=== PATIENT | male | born 1995 | race American Indian/Alaskan Native ===

== ENCOUNTER 2022-02-26 15:13 | Emergency (ER) | payer SELFPAY ==
[2022-02-26] MEDS ORDERED: MORPHINE 4 MG/1 ML INJ IV ONE (15:48)
[2022-02-26] MEDS ORDERED: ONDANSETRON 4 MG/2 ML INJ IV ONE (15:48)
[2022-02-26] MEDS ORDERED: LACTATED RINGERS 1000 ML IV SOLN IV ONE (15:48)
[2022-02-26] MEDS ORDERED: ACETAMINOPHEN 325 MG TAB PO ONE (15:52)
--- NOTE | 2022-02-26 15:53 | Emergency Department Report ---
ED General Adult HPI - General Chief complaint: Nausea/Vomiting/Diarrhea Stated complaint: GENERAL BODY WEAKNESS PUI?: Yes Time Seen by Provider: 02/26/22 15:33 Source: patient, EMS ( EMS documentation not available at time of chart dictation ), RN notes reviewed Mode of arrival: Stretcher Limitations: No Limitations - History of Present Illness Initial comments: The patient was evaluated in the emergency department for symptoms described in the history of present illness. He/she was evaluated in the context of the global COVID-19 pandemic, which necessitated consideration that the patient might be at risk for infection with the virus that causes COVID-19. Institutional protocols and algorithms that pertain to the evaluation of patients at risk for COVID-19 are in a state of rapid change based on information released by regulatory bodies including the CDC and federal and state organizations. These policies and algorithms were followed during the patient's care in the emergency department. Please note that these policies, procedures and recommendations changed on a rapid basis. During the entire history and physical examination, I had on complete personal protective equipment. This is a 27-year-old gentleman, who is not vaccinated against COVID-19, who is currently visiting from [place], who has a history of being HIV positive, reports undetectable viral load, but does not report that he knows his CD4 count, and also reports that he is currently on antiviral therapy. He presents to the department today with complaints of decreased appetite, nausea and vomiting x4, and a sensation like his body is locking up. No headache, neck pain, chest pain, urinary symptoms or testicular pain. No loss of taste or smell. He does occasionally consume marijuana. Reports that he was admitted to the hospital earlier on this year in [facility], for possible Shigella infection. However this was in August or September of this year. Does not believe that he is consumed antibiotics recently. Reports that he recently drove up here from [place]. He is not having physical pain at this time The patient is also concerned that he may have gotten too hot, because there is no air conditioning in the place where he is staying at this time. -: Sudden, hour(s) Consistency: constant Improves with: none Worsens with: other (Palpation of the abdomen) - Related Data Previous Rx's Medication Instructions Recorded Last Taken Type Acetaminophen [Non-Aspirin Extra 500 mg PO Q6HR PRN #30 tablet 02/26/22 Unknown Rx Strength] Ibuprofen [Motrin] 400 mg PO Q8H PRN #30 tablet 02/26/22 Unknown Rx Ondansetron [Zofran Odt] 4 mg PO Q8HR PRN #20 tab.rapdis 02/26/22 Unknown Rx Allergies Allergy/AdvReac Type Severity Reaction Status Date / Time Sulfa (Sulfonamide Allergy Hives Verified 02/26/22 15:27 Antibiotics) ED Review of Systems ROS: Stated complaint: GENERAL BODY WEAKNESS Other details as noted in HPI Constitutional: fever, weakness. denies: malaise Eyes: denies: eye discharge ENT: denies: epistaxis Respiratory: denies: cough Cardiovascular: denies: chest pain Gastrointestinal: nausea, vomiting. denies: diarrhea Genitourinary: denies: dysuria, testicular pain Musculoskeletal: denies: back pain, arthralgia, myalgia Neurological: weakness ED Past Medical Hx - Past Medical History Hx HIV: Yes Additional medical history: cancerous cyst on neck - Medications Home Medications: Home Medications Medication Instructions Recorded Confirmed Last Taken Type Acetaminophen [Non-Aspirin Extra 500 mg PO Q6HR PRN #30 tablet 02/26/22 Unknown Rx Strength] Ibuprofen [Motrin] 400 mg PO Q8H PRN #30 tablet 02/26/22 Unknown Rx Ondansetron [Zofran Odt] 4 mg PO Q8HR PRN #20 tab.rapdis 02/26/22 Unknown Rx ED Physical Exam - General Limitations: No Limitations General appearance: alert, anxious - Head Head exam: Present: atraumatic, normocephalic - Eye Eye exam: Present: normal appearance. Absent: EOMI, nystagmus - ENT ENT exam: Present: normal exam, normal orophraynx, mucous membranes moist, normal external ear exam - Neck Neck exam: Present: normal inspection, full ROM. Absent: tenderness, meningismus - Respiratory Respiratory exam: Present: other (Pulmonary auscultation not performed secondary to lack of disposable stethoscope). 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 Absent: distended, pulsatile mass - Rectal Rectal exam: Present: deferred - Extremities Exam Extremities exam: Present: normal inspection, full ROM, other (2+ pulses noted in the bilateral upper and lower extremities. There is no palpable cord. negative Homans sign. Muscular compartments are soft. The pelvis is stable.). Absent: pedal edema, calf tenderness - Back Exam Back exam: Present: normal inspection. Absent: tenderness, CVA tenderness (R), CVA tenderness (L), paraspinal tenderness, vertebral tenderness - Neurological Exam Neurological exam: Present: alert, oriented X3, other (No facial droop. Tongue midline. Extraocular movements intact bilaterally. Facial sensation intact to light touch in V1, V2, V3 distribution bilaterally. 5 and a 5 strength in 4 extremities. Sensation intact to light touch in 4 extremities.). Absent: motor sensory deficit - Psychiatric Psychiatric exam: Present: anxious - Skin Skin exam: Present: warm, dry, intact, normal color. Absent: rash ED Course Vital Signs 02/26/22 02/26/22 02/26/22 15:23 16:55 17:53 Temperature 101.7 F H Pulse Rate 95 H 115 H Respiratory 18 16 Rate Blood Pressure 118/68 103/50 [Left] O2 Sat by Pulse 98 95 96 Oximetry - Reevaluation(s) Reevaluation #1: 02/26/22 16:06 Differential diagnosis, include but not limited to: COVID-19, pneumonia, colitis, diverticulitis, enteritis, renal colic, urinary tract infection, pneumonia Assessment and plan: 27-year-old gentleman who is febrile and tachycardic, with unopposed nausea and vomiting, and abdominal tenderness. Place patient on isolation. Obtain x-ray of the chest, CT scan of the abdomen pelvis, and appropriate laboratory studies. Treat patient's symptoms. He is not acutely hypoxic at this time. Reassess after initial data points. I discussed the plan of care with the patient. He articulated understanding. He is agreeable to the plan of care. This may be an atypical presentation of COVID However, he is not hypoxic, therefore, from a COVID perspective, assuming laboratory studies do not demonstrate significant derangement, would not require admission or hospitalization 02/26/22 16:07 02/26/22 17:12 Patient gives me a thumbs up. He is in no acute distress. Laboratory studies reviewed and appreciated. Awaiting urinalysis, CT scan abdomen pelvis. No active vomiting. 02/26/22 17:[address] scan abdomen pelvis. We discussed rationale for acquisition of CT scan abdomen pelvis. Patient is agreeable at this time. He does request to finish his current phone conversation, prior to CT scan abdomen pelvis. This is resulting in a delay to disposition. I also discussed laboratory studies with patient 02/26/22 19:04 CT scan abdomen pelvis negative for acute findings. Patient feels much improved. No active vomiting. Blood pressure acceptable at this time. He is somewhat tachycardic at this time, although he endorses that he is somewhat anxious. I discussed all findings with patient. He articulates understanding We also explicitly discussed how this patient may require outpatient insurance, such as by going to [email or web address], and obtaining insurance through the affordable care act. All questions are answered. Return precautions are reviewed 02/26/22 19:04 02/26/22 19:30 Heart rate approximately 110 bpm. ED Medical Decision Making - Lab Data Result diagrams: 02/26/22 16:04 02/26/22 16:04 Vital Signs 02/26/22 15:23 Temperature 101.7 F H Pulse Rate 95 H Respiratory 18 Rate Blood Pressure 118/68 [Left] O2 Sat by Pulse 98 Oximetry Lab Results 02/26/22 02/26/22 02/26/22 Range/Units 16:04 16:04 16:04 WBC 9.1 (4.5-11.0) K/mm3 RBC 4.50 (3.65-5.03) M/mm3 Hgb 14.8 (11.8-15.2) gm/dl Hct 43.4 (35.5-45.6) % MCV 97 H (84-94) fl MCH 33 H (28-32) pg MCHC 34 (32-34) % RDW 13.3 (13.2-15.2) % Plt Count 150 (140-440) K/mm3 Seg Neutrophils % Python Java Developer APTT 28.6 (24.2-36.6) Sec. Sodium 139 (137-145) mmol/L Potassium 3.5 L (3.6-5.0) mmol/L Chloride 102.1 (98-107) mmol/L Carbon Dioxide 24 (22-30) mmol/L Anion Gap 16 mmol/L BUN 10 (9-20) mg/dL Creatinine 1.0 (0.8-1.3) mg/dL Estimated GFR > 60 ml/min BUN/Creatinine Ratio 10 % Glucose 98 (75-100) mg/dL Lactic Acid (0.7-2.0) mmol/L Calcium 9.9 (8.4-10.2) mg/dL Magnesium (1.7-2.3) mg/dL Total Bilirubin 1.50 H (0.1-1.2) mg/dL AST 14 (5-40) units/L ALT 9 (7-56) units/L Alkaline Phosphatase 63 (35-129) units/L Lactate Dehydrogenase 190 H (91-180) units/L Total Creatine Kinase (55-170) units/L Total Protein 7.7 (6.3-8.2) g/dL Albumin 4.5 (3.9-5) g/dL Albumin/Globulin Ratio 1.4 % Lipase 14 (13-60) units/L 02/26/22 02/26/22 Range/Units 16:04 16:04 WBC (4.5-11.0) K/mm3 RBC (3.65-5.03) M/mm3 Hgb (11.8-15.2) gm/dl Hct (35.5-45.6) % MCV (84-94) fl MCH (28-32) pg MCHC (32-34) % RDW (13.2-15.2) % Plt Count (140-440) K/mm3 Seg Neutrophils % APTT (24.2-36.6) Sec. Sodium (137-145) mmol/L Potassium (3.6-5.0) mmol/L Chloride (98-107) mmol/L Carbon Dioxide (22-30) mmol/L Anion Gap mmol/L BUN (9-20) mg/dL Creatinine (0.8-1.3) mg/dL Estimated GFR ml/min BUN/Creatinine Ratio % Glucose (75-100) mg/dL Lactic Acid 1.50 (0.7-2.0) mmol/L Calcium (8.4-10.2) mg/dL Magnesium 1.20 L (1.7-2.3) mg/dL Total Bilirubin (0.1-1.2) mg/dL AST (5-40) units/L ALT (7-56) units/L Alkaline Phosphatase (35-129) units/L Lactate Dehydrogenase (91-180) units/L Total Creatine Kinase 81 (55-170) units/L Total Protein (6.3-8.2) g/dL Albumin (3.9-5) g/dL Albumin/Globulin Ratio % Lipase (13-60) units/L - Radiology Data Radiology results: pending, report reviewed, image reviewed CHEST 1 VIEW INDICATION / CLINICAL INFORMATION: Nausea vomiting and fever. FINDINGS: SUPPORT DEVICES: None. HEART / MEDIASTINUM: No significant abnormality. LUNGS / PLEURA: No significant pulmonary or pleural abnormality. No pneumothorax. ADDITIONAL FINDINGS: No significant additional findings. IMPRESSION: 1. No acute findings. Signer Name: Wale Curry MD Signed: 02/26/2022 3:06 PM Workstation Name: [id number] CT ABDOMEN AND PELVIS WITH IV CONTRAST INDICATION: Acute abdominal tenderness with nausea and vomitin. COMPARISON: None available. TECHNIQUE: Axial CT images were obtained through the abdomen and pelvis after 100 mL Omnipaque [address] scans at this location are performed using CT dose reduction for ALARA by means of automated exposure control. FINDINGS -- ABDOMEN: Lung Bases: No acute abnormality. Liver: Normal. Gallbladder: Normal. Bile Ducts: Normal. Pancreas: Normal. Spleen: Normal. Adrenals: Normal. Right Kidney and Proximal Ureter: Normal. Left Kidney and Proximal Ureter: Normal. Stomach and Bowel: Normal. Lymph Nodes: No significant adenopathy. Aorta: No significant abnormality. IVC: Normal. Additional Findings: None. FINDINGS -- PELVIS: Urinary Bladder and Distal Ureters: Normal. Reproductive Organs: No acute abnormality. Appendix: Normal. Bowel: No acute abnormality. Free Fluid: None. Lymph Nodes: No significant adenopathy. Additional Findings: None. Skeletal System: No acute abnormality. IMPRESSION: 1. No acute process in the abdomen or pelvis. Signer Name: Wale Curry MD Signed: 02/26/2022 5:39 PM Workstation Name: [email or web address] Critical care attestation.: If time is entered above; I have spent that time in minutes in the direct care of this critically ill patient, excluding procedure time. ED Disposition Clinical Impression: Acute abdominal pain, COVID-19 vaccination not done, Hypomagnesemia, Acute febrile illness Disposition: 01 HOME / SELF CARE / HOMELESS Is pt being admited?: No Does the pt Need Aspirin: No Condition: Good Additional Instructions: Recommend the patient complete outpatient COVID-19 vaccination series, when he is fever free, and symptom-free. Please continue current outpatient medications. Avoid consumption of alcohol, tobacco, smoke products, including cannabis and marijuana. Please take a multivitamin [id number] on a daily basis, and patient may consume foods that have elevated magnesium level, such as banana, avocado, and potato. Cultures are sent today, and results will be available in the next 3 to 5 days. Please have your primary care doctor contact the medical records department to obtain culture results. Patient may take the prescribed pain medications and nausea medications as needed and directed. Recommend self-isolation, and outpatient COVID-19 testing. Recommend follow-up with a primary care doctor within the next 3 to 5 days. Do not take metformin medication for the next 2 days, if patient takes this medication. Please return to the emergency room right away with new pain, worsened pain, migration of pain, projectile vomiting, change in mental status, confusion, inability tolerate liquid feeds, new, worsened or different symptoms not present on the initial emergency room evaluation Prescriptions: Ibuprofen [Motrin] 400 mg PO Q8H PRN #30 tablet PRN Reason: Pain Acetaminophen [Non-Aspirin Extra Strength] 500 mg PO Q6HR PRN #30 tablet PRN Reason: Pain , Severe (7-10) Ondansetron [Zofran Odt] 4 mg PO Q8HR PRN #20 tab.rapdis PRN Reason: Nausea Referrals: [facility] [Provider Group] - 3-5 Days [facility] [Provider Group] - 3-5 Days [facility] [Outside] - 3-5 Days Forms: Work/School Release Form(ED)
--- NOTE | 2022-02-26 16:10 | XRay Report ---
CHEST 1 VIEW INDICATION / CLINICAL INFORMATION: Nausea vomiting and fever. FINDINGS: SUPPORT DEVICES: None. HEART / MEDIASTINUM: No significant abnormality. LUNGS / PLEURA: No significant pulmonary or pleural abnormality. No pneumothorax. ADDITIONAL FINDINGS: No significant additional findings. IMPRESSION: 1. No acute findings. Signer Name: Wale Curry MD Signed: 02/26/2022 4:06 PM Workstation Name: [id number]
[2022-02-26 16:32] LABS: Hematocrit 43.4 % (35.5-45.6); Hemoglobin 14.8 gm/dl (11.8-15.2); Mean Corpuscular HGB Conc 34 % (32-34); Mean Corpuscular Volume 97 fl (84-94); Platelet Count 150 K/mm3 (140-440); Red Cell Distribution Width 13.3 % (13.2-15.2)
[2022-02-26 16:45] LABS: Alanine Aminotransferase 9 units/L (7-56); Albumin 4.5 g/dL (3.9-5); BUN/Creatinine Ratio 10; Blood Urea Nitrogen 10 mg/dL (9-20); Calcium 9.9 mg/dL (8.4-10.2); Hemolysis Index 32
[2022-02-26] MEDS ORDERED: MAGNESIUM SULFATE 2 GM/50 ML BAG IV ONE (16:54)
[2022-02-26 17:46] LABS: Mucus,Urine FEW /HPF
[2022-02-26 18:07] LABS: Bilirubin,Urine Negative (Negative); Blood,Urine Trace (Negative); Color,Urine Straw (Yellow); PH,Urine 8.5 (5.0-7.0); Protein,Urine 300 mg/dL mg/dL (Negative)
[2022-02-26 18:08] LABS: Urobilinogen,Urine < 2.0 mg/dL (<2.0)
[2022-02-26 18:14] LABS: Eosinophils % (Manual) 0 % (0.0-4.3); Platelet Estimate Consistent w Auto; RBC Morphology Normal; Total Cells Counted 100; Toxic Granulation 1+; Toxic Vacuolation Few
--- NOTE | 2022-02-26 18:43 | Cat Scan Report ---
CT ABDOMEN AND PELVIS WITH IV CONTRAST INDICATION: Acute abdominal tenderness with nausea and vomitin. COMPARISON: None available. TECHNIQUE: Axial CT images were obtained through the abdomen and pelvis after 100 mL Omnipaque [address] scans at this location are performed using CT dose reduction for ALARA by means of automated e xposure control. FINDINGS -- ABDOMEN: Lung Bases: No acute abnormality. Liver: Normal. Gallbladder: Normal. Bile Ducts: Normal. Pancreas: Normal. Spleen: Normal. Adrenals: Normal. Right Kidney and Proximal Ureter: Normal. Left Kidney and Proximal Ureter: Normal. Stomach and Bowel: Normal. Lymph Nodes: No significant adenopathy. Aorta: No significant abnormality. IVC: Normal. Additional Findings: None. FINDINGS -- PELVIS: Urinary Bladder and Distal Ureters: Normal. Reproductive Organs: No acute abnormality. Appendix: Normal. Bowel: No acute abnormality. Free Fluid: None. Lymph Nodes: No significant adenopathy. Additional Findings: None. Skeletal System: No acute abnormality. IMPRESSION: 1. No acute process in the abdomen or pelvis. Signer Name: Wale Curry MD Signed: 02/26/2022 6:39 PM Workstation Name: [id number]
[2022-02-26] MEDS ORDERED: KETOROLAC 30 MG/1 ML INJ IV ONE (18:53)
[2022-02-26] MEDS ORDERED: SODIUM CHLORIDE 0.9% 1000 ML 1,000 ML IV ONE (18:54)
[2022-02-26] MEDS ORDERED: ALPRAZolam 0.5 MG TAB PO ONE (18:58)
[2022-02-26 21:52] VITALS: BP 124/78
== END 2022-02-26 21:53 | disposition home or self-care (01) ==
LOC: ED 15:13
DX: R10.9 Unspecified abdominal pain (principal); E83.42 Hypomagnesemia; R50.9 Fever, unspecified; Z88.2 Allergy status to sulfonamides
CPT/HCPCS: 36415; 71045; 74177; 80053; 81001; 82140; 82550; 83615; 83690; 83735; 85007; 85025; 85730; 87040; 87086; 96365; 96366; 96375; 99285; J1885; J2270; J2405; J3475; J7030; J7120; Q9967